=== PATIENT | male | born 1955 | race Caucasian/White ===

== ENCOUNTER 2022-09-10 05:35 | Day surgery (SDC) | payer OTHER ==
[2022-09-04 16:32] VITALS: BMI 28.1
[2022-09-10 11:21] VITALS: BP 109/67; PULSE 54; RESP 14; TEMP 98
== END 2022-09-10 11:25 | disposition home or self-care (01) ==
LOC: JASU-ENDO 05:35
PROVIDERS: ATTEND Internal Medicine Gastroenterology
PROC: 0DBM8ZX Excision of Descending Colon, Via Natural or Artificial Opening Endoscopic, Diagnostic (ICD-10-PCS; principal; 2022-09-10 09:30)
DX: Z12.11 Encounter for screening for malignant neoplasm of colon (principal); D12.4 Benign neoplasm of descending colon; K64.8 Other hemorrhoids
CPT/HCPCS: 88305-TC

== ENCOUNTER 2023-04-12 05:10 | Day surgery (SDC) | payer OTHER ==
[2023-04-09 15:07] VITALS: BMI 26.6
[2023-04-12] MEDS ORDERED: BUPIVACAINE HCL/PF 0.25% (2.5MG/ML) 10 ML VIAL ONE (13:39)
[2023-04-12] MEDS ORDERED: cefOXitin SODIUM 2 GM VIAL (RESTRICTED TO ID) IVPB ONE (13:39)
[2023-04-12] MEDS ORDERED: HEPARIN NA (PORCINE) 5,000 UNITS/ML 1ML VIAL ONE (13:39)
[2023-04-12] MEDS ORDERED: INDOCYANINE GREEN 25 MG/10 ML VIAL IVPUSH ONE (14:22)
[2023-04-12] MEDS ORDERED: KETOROLAC TROMETHAMINE 30 MG/1 ML VIAL ONE (14:39)
[2023-04-12] MEDS ORDERED: ONDANSETRON 4 MG/2 ML VIAL ONE (14:39)
[2023-04-12] MEDS ORDERED: ROCURONIUM BROMIDE 50 MG/5 ML SYRINGE ONE (14:39)
[2023-04-12] MEDS ORDERED: PROPOFOL 20 ML ONE (14:39)
[2023-04-12] MEDS ORDERED: MIDAZOLAM HCL 2 MG/2 ML SINGLE DOSE VIAL ONE (14:39)
[2023-04-12] MEDS ORDERED: FENTANYL CITRATE/PF 50 MCG/ML VIAL ONE (14:39)
[2023-04-12] MEDS ORDERED: LIDOCAINE HCL/PF 2% SDV 5ML VIAL ONE (14:39)
[2023-04-12] MEDS ORDERED: DEXAMETHASONE SOD PHOSPHATE 4 MG/1 ML VIAL ONE (14:39)
[2023-04-12] MEDS ORDERED: SEVOFLURANE 250 ML BTL ONE (14:40)
[2023-04-12] MEDS ORDERED: ACETAMINOPHEN INJECTION 100 ML IVPB ONE (14:40)
[2023-04-12] MEDS ORDERED: ceFAZolin 2 GRAM PREMIX BAG IVPB ONE (15:10)
[2023-04-12] MEDS ORDERED: BUPIVACAINE HCL/PF 0.5% (5 MG/ML) 30 ML VIAL IJ ONE (15:39)
[2023-04-12] MEDS ORDERED: hydrALAZINE HCL 20 MG/ML VIAL ONE (16:14)
[2023-04-12] MEDS ORDERED: ONDANSETRON 4 MG/2 ML VIAL IVPUSH PRN (16:39)
[2023-04-12] MEDS ORDERED: oxyCODONE HCL 5 MG TABLET PO PRN ×2 (16:39)
[2023-04-12] MEDS ORDERED: PROMETHAZINE HCL 25 MG/1 ML VIAL IVPB PRN (16:39)
[2023-04-12] MEDS ORDERED: LACTATED RINGERS SOLUTION 1,000 ML IV SCH (16:45)
[2023-04-12 19:02] VITALS: RESP 20; TEMP 97.2
[2023-04-12 19:04] VITALS: BP 120/65; PULSE 85
== END 2023-04-12 18:37 | disposition home or self-care (01) ==
LOC: JASU-SURG 05:10
PROVIDERS: ATTEND Surgery
PROC: 8E0W4CZ Robotic Assisted Procedure of Trunk Region, Percutaneous Endoscopic Approach (ICD-10-PCS; 2023-04-12)
PROC: 0FT44ZZ Resection of Gallbladder, Percutaneous Endoscopic Approach (ICD-10-PCS; principal; 2023-04-12 14:30)
DX: K82.4 Cholesterolosis of gallbladder (principal)
CPT/HCPCS: 47562; S2900; 86850; 86900; 86901; 88304-TC; 94760; J1644